=== PATIENT | male | born 1995 | race Caucasian/White ===

== ENCOUNTER 2018-03-18 10:15 | Emergency (ER) | payer BC, MEDICAID ==
--- NOTE | 2018-03-18 11:22 | ED ---
Throat Pain/Nasal Congestion - HPI Summary HPI Summary: 22 yr old male came from School/day program. He has Autism and also anoxic brain injury. The patient has a history of ear infection, TM rupture. The father states that over the weekend his son has been fine. The father feels this child is at his baseline presently. He brought him from school because school called and said this patient's balance was off, and almost fell. Dad affirms that his son always walks with gait disturbance as part of his baseline and that he walked from school to the car, and into urgent care in the manner that he always walks. He says his son is a little tired today,but otherwise no other issues. No NVD, no runny nose, shortness of breath, rash. No focal deficits that are new. he is smiling and interacting as he always does per dad. There have been no fevers. TMAX today was 99. - History of Current Complaint Chief Complaint: UCGeneralIllness Time Seen by Provider: 03/18/18 10:54 - Allergies/Home Medications Allergies/Adverse Reactions: Allergies Allergy/AdvReac Type Severity Reaction Status Date / Time ALUMINUM SULFATE Allergy Rash Uncoded 03/18/18 10:40 Home Medications: Home Medications Guanfacine HCl [Intuniv] 3 mg PO DAILY 03/18/18 [History Confirmed 03/18/18] Methylphenidate HCl [Ritalin] 30 mg PO DAILY 03/18/18 [History Confirmed ] risperiDONE [Risperidone] 2 tab PO BID 03/18/18 [History Confirmed 03/18/18] PMH/Surg Hx/FS Hx/Imm Hx - Surgical History Surgery Procedure, Year, and Place: G-TUBE. FUNDIPLICATION Infectious Disease History: Yes Infectious Disease History: Reports: Hx of Known/Suspected MRSA Denies: Traveled Outside the [place] in Last 30 Days - Social History Occupation: Student Lives: With Family Alcohol Use: None Substance Use Type: Reports: None Smoking Status (MU): Never Smoked Tobacco Review of Systems Constitutional: Negative Eyes: Negative ENT: Negative Neurological: Negative All Other Systems Reviewed And Are Negative: Yes - Comments Additional Review of Systems Comments: LIMITED DUE TO PATIENT BEING NON VERBAL AT BASELINE AUTISM. TBI: Physical Exam Triage Information Reviewed: Yes Vital Signs On Initial Exam: Initial Vitals Temp Pulse Resp BP Pulse Ox 97.0 F 83 17 125/76 98 03/18/18 10:34 03/18/18 10:34 03/18/18 10:34 03/18/18 10:34 03/18/18 10:34 Vital Signs Reviewed: Yes Appearance: Positive: Well-Appearing, No Pain Distress Skin: Positive: Warm, Skin Color Reflects Adequate Perfusion Head/Face: Positive: Normal Head/Face Inspection Eyes: Positive: EOMI, ANGELIQUE ENT: Positive: Pharynx normal, TM red - left TM with scaring.. Negative: Muffled voice Neck: Positive: Nontender Respiratory/Lung Sounds: Positive: Clear to Auscultation, Breath Sounds Present Cardiovascular: Positive: RRR. Negative: Murmur Abdomen Description: Positive: Nontender Musculoskeletal: Positive: Strength/ROM Intact Neurological: Positive: Sensory/Motor Intact, Alert, Oriented to Person Place, Time, CN Intact II-III Psychiatric: Positive: Normal - [place] Coma Scale Best Eye Response: 4 - Spontaneous Best Motor Response: 6 - Obeys Commands Best Verbal Response: 5 - Oriented Coma Scale Total: 15 Diagnostics - Vital Signs Vital Signs Temp Pulse Resp BP Pulse Ox 03/18/18 10:34 97.0 F 83 17 125/76 98 - Laboratory Lab Statement: Any lab studies that have been ordered have been reviewed, and results considered in the medical decision making process. EENT Course/Dx - Course Course Of Treatment: 22 yr old male with autism. He is at his baseline per dad. He is walking fine here. DC home on amox for his left ear. Dad will follow up with PMD and to ER for any further concerns. - Diagnoses Provider Diagnoses: Otitis media Discharge - Sign-Out/Discharge Documenting (check all that apply): Patient Departure All imaging exams completed and their final reports reviewed: No Studies - Discharge Plan Condition: Good Disposition: HOME Prescriptions: Amoxicillin PO (*) [Amoxicillin 400 MG/5 ML SUSP*] 480 mg PO TID #180 ml Patient Education Materials: Ear Infection (ED) Referrals: Non Staff,Doctor [Medical Doctor] - [facility] [place] [Outside] - 2 Days - Billing Disposition and Condition Condition: GOOD Disposition: Home
[2018-03-18 11:27] VITALS: BP 125/76
== END 2018-03-18 11:21 | disposition home or self-care (01) ==
LOC: UCCORT 10:15
DX: H66.92 Otitis media, unspecified, left ear (principal); F84.0 Autistic disorder; R47.89 Other speech disturbances; Z87.820 Personal history of traumatic brain injury; Z91.048 Other nonmedicinal substance allergy status
CPT/HCPCS: 99202; G0463